=== PATIENT | female | born 1990 | race Caucasian/White ===

== ENCOUNTER 2017-07-02 13:57 | Emergency (ER) | payer OTHER ==
[~2017-07-02] VITALS: Ht 157.4 cm; Wt 57.2 kg
[~2017-07-02 13:57] MED LIST: AMOXICILLIN500 MG PO; COLACE100 MG PO; ERYTHROCIN STE500 M1 PO; MACROBID100 M1 PO; NKHM; ZITHROMAX Z PA250 MG PO; ZYRTEC10 MG PO
[2017-07-02 14:19] VITALS: BP 138/90
[2017-07-02] MEDS ORDERED: NAPROSYN500 MG PO (16:40)
== END 2017-07-02 16:44 | disposition home or self-care (01) ==
LOC: ED 13:57
DX: M54.2 Cervicalgia (principal); R51 Headache; F17.200 Nicotine dependence, unspecified, uncomplicated; Z90.49 Acquired absence of other specified parts of digestive tract; V86.59XA Driver of other special all-terrain or other off-road motor vehicle injured in nontraffic accident, initial encounter; Y93.55 Activity, bike riding; Y92.89 Other specified places as the place of occurrence of the external cause; Y99.9 Unspecified external cause status

== ENCOUNTER → 2017-08-13 | Outpatient (CLI) | payer OTHER ==
[~2017-08-13] MED LIST changes: +NAPROSYN500 MG PO
[2017-08-13 11:27] LABS: HEMATOCRIT 40.9 % (37.0-47.0); HEMOGLOBIN 13.9 g/dl (12.0-16.0); MEAN PLATELET VOLUME 8.8 fl (9.6-12.3); RED BLOOD COUNT 4.35 10*6/uL (4.10-5.10); RED CELL DISTRI WIDTH 11.6 % (0-14.5); WHITE BLOOD COUNT 8.6 10*3/uL (4.8-10.8)
[2017-08-13 11:56] LABS: ALBUMIN 3.8 gm/dl (3.1-4.5); ALKALINE PHOSPHATASE 90 U/L (45-117); BUN 16 mg/dl (7-24); CHLORIDE 105 mmol/L (98-107); CREATININE 0.68 mg/dL (0.55-1.02); POTASSIUM 3.7 mmol/L (3.5-5.1); SGOT/AST 9 IU/L (3-35); SGPT/ALT 16 U/L (12-78); SODIUM 139 mmol/L (136-145); TOTAL PROTEIN 7.4 gm/dL (6.4-8.2)
[2017-08-14 06:11] LABS: HEPATITIS B SURFACE AG Negative (Negative); HEPATITIS C VIRUS ANTIBODY <0.1 s/co (0.0-0.9); HIV 1+2 AB + HIV1 P24 AG Non Reactive (Non Reactive)
== END | disposition home or self-care (01) ==
LOC: LAB 11:10
PROVIDERS: Family Medicine
DX: Z77.21 Contact with and (suspected) exposure to potentially hazardous body fluids (principal)

== ENCOUNTER 2018-01-08 15:21 | Emergency (ER) | payer SELFPAY ==
[~2018-01-08] VITALS: Ht 157.4 cm; Wt 59.0 kg
[2018-01-08 15:28] VITALS: BP 109/52
[2018-01-08] MEDS ORDERED: ROBITUSSIN DM 105 ML PO (16:20)
[2018-01-08] MEDS ORDERED: CLARITIN10 MG PO (16:20)
[2018-01-08] MEDS ORDERED: PREDNISONE10 MG PO (16:20)
[2018-01-08] MEDS ORDERED: FLONASE ALLERG9.9 ML NAS (16:20)
== END 2018-01-08 16:54 | disposition home or self-care (01) ==
LOC: ED 15:21
DX: B34.9 Viral infection, unspecified (principal); Z90.49 Acquired absence of other specified parts of digestive tract; Z88.8 Allergy status to other drugs, medicaments and biological substances

== ENCOUNTER → 2018-09-07 | Outpatient (CLI) | payer OTHER ==
[~2018-09-07] MED LIST changes: +BROMFED DM COU118 M2 PO; +CLARITIN10 MG PO; +FLONASE ALLERG9.9 ML NAS; +OMNICEF300 MG PO; +PREDNISONE10 MG PO; +ROBITUSSIN DM 105 ML PO
== END | disposition home or self-care (01) ==
LOC: US 15:00
DX: Z33.1 Pregnant state, incidental (principal); Z3A.01 Less than 8 weeks gestation of pregnancy

== ENCOUNTER 2018-09-27 11:20 | Emergency (ER) | payer OTHER ==
[~2018-09-27] VITALS: Ht 160 cm; Wt 58.1 kg
[2018-09-27 11:21] VITALS: BP 101/47
[2018-09-27 11:53] LABS: BILIRUBIN NEGATIVE (NEGATIVE); BLOOD NEGATIVE (NEGATIVE); CLARITY SL CLOUDY (CLEAR); COLOR YELLOW (YELLOW); GLUCOSE NEGATIVE (NEGATIVE); KETONE NEGATIVE (NEGATIVE); LEUKO ESTERASE NEGATIVE (NEGATIVE); NITRITE NEGATIVE (NEGATIVE); UROBILINOGEN 0.2 E.U./dl (0.2-1.0)
[2018-09-27 12:38] LABS: BACTERIA 2+
== END 2018-09-27 14:00 | disposition left against medical advice (07) ==
LOC: ED 11:20
PROVIDERS: Emergency Medicine
DX: O26.851 Spotting complicating pregnancy, first trimester (principal); O26.891 Other specified pregnancy related conditions, first trimester; R30.0 Dysuria; Z53.21 Procedure and treatment not carried out due to patient leaving prior to being seen by health care provider; Z90.49 Acquired absence of other specified parts of digestive tract; Z3A.09 9 weeks gestation of pregnancy

== ENCOUNTER 2018-11-18 11:30 | Emergency (ER) | payer OTHER ==
[~2018-11-18] VITALS: Ht 157.4 cm; Wt 57.6 kg
--- NOTE | ~2018-11-18 | EKG ---
[place], [place] ELECTROCARDIOGRAM REPORT NAME: TORRES REID UNIT #: [id number] ROOM: DOCTOR: EPIPHANY DRAFT REPORT BIRTHDATE: [birth year] [facility] Test Date: 2018-11-18 Test Time: 12:01:11 Pat Name: TORRES REID Department: Room: Gender: F [employer]: : 1990 Requested By: MOON CERON Order Number: [id number] Reading MD: Measurements Intervals [place] Rate: 64 P: 95 WI: 156 QRS: 86 QRSD: 76 T: 67 QT: 382 QTc: 394 Interpretive Statements Sinus rhythm No previous ECG available for comparison CM:EKGRPT:ELECTROCARDIOGRAM REPORT [id number] MOON MCKINLEY DRAFT REPORT MOON CERON
[~2018-11-18 11:30] MED LIST changes: +CLASSIC PRENAT1 EACH PO
[2018-11-18 11:32] VITALS: BP 98/35
[2018-11-18 11:43] LABS: BILIRUBIN NEGATIVE (NEGATIVE); BLOOD NEGATIVE (NEGATIVE); CLARITY CLOUDY (CLEAR); COLOR YELLOW (YELLOW); GLUCOSE NEGATIVE (NEGATIVE); KETONE NEGATIVE (NEGATIVE); LEUKO ESTERASE TRACE (NEGATIVE); NITRITE NEGATIVE (NEGATIVE); PH 7.5 (5.0-9.0); UROBILINOGEN 0.2 E.U./dl (0.2-1.0)
[2018-11-18 11:57] LABS: BACTERIA 3+
[2018-11-18 12:10] LABS: BASO # 0.1 10*3/uL (0.0-0.1); BASO % 0.6 % (0.0-1.0); EOS # 0.4 10*3/uL (0.0-0.4); EOS % 2.8 % (1.0-4.0); HEMATOCRIT 35.8 % (37.0-47.0); HEMOGLOBIN 12.3 g/dl (12.0-16.0); MEAN CELL VOLUME 91.6 fl (81.0-99.0); MEAN CORPUSCULAR HGB 31.5 pg (27.0-31.0); MEAN CORPUSCULAR HGB CONC 34.4 g/dl (33.0-37.0); MEAN PLATELET VOLUME 9.1 fl (9.6-12.3); MONO # 0.8 10*3/uL (0.1-1.0); MONO % 5.7 % (3.0-9.0); NEUT # 10.1 10*3/uL (2.3-7.9); NEUT % 75.4 % (47.0-73.0); PLATELET COUNT AUTOMATED 342 10*3/uL (130-400); RED BLOOD COUNT 3.91 10*6/uL (4.10-5.10); WHITE BLOOD COUNT 13.3 10*3/uL (4.8-10.8)
[2018-11-18 12:25] LABS: ALKALINE PHOSPHATASE 61 U/L (45-117); BUN 10 mg/dl (7-24); CHLORIDE 105 mmol/L (98-107); CREATININE 0.54 mg/dL (0.55-1.02); LIPASE 115 U/L (73-393); POTASSIUM 3.7 mmol/L (3.5-5.1); SGOT/AST 9 IU/L (3-35); SGPT/ALT 12 U/L (12-78); SODIUM 137 mmol/L (136-145); TOTAL PROTEIN 6.9 gm/dL (6.4-8.2)
== END 2018-11-18 14:49 | disposition home or self-care (01) ==
LOC: ED 11:30
PROVIDERS: Internal Medicine; Nurse Practitioner Family
DX: O26.892 Other specified pregnancy related conditions, second trimester (principal); R55 Syncope and collapse; O26.52 Maternal hypotension syndrome, second trimester; Z79.899 Other long term (current) drug therapy; Z3A.18 18 weeks gestation of pregnancy; Z90.49 Acquired absence of other specified parts of digestive tract

== ENCOUNTER → 2018-12-07 | Outpatient (CLI) | payer OTHER | END | disposition home or self-care (01) | LOC: US 17:00 | DX: Z34.92 Encounter for supervision of normal pregnancy, unspecified, second trimester (principal); Z3A.20 20 weeks gestation of pregnancy ==

== ENCOUNTER → 2019-01-17 | Outpatient (CLI) | payer OTHER | END | disposition home or self-care (01) | LOC: US 12:24 | DX: Z34.92 Encounter for supervision of normal pregnancy, unspecified, second trimester (principal); Z3A.26 26 weeks gestation of pregnancy ==

== ENCOUNTER → 2019-02-16 | Outpatient (CLI) | payer OTHER | END | disposition home or self-care (01) | LOC: US 02-02 13:00 | DX: Z34.93 Encounter for supervision of normal pregnancy, unspecified, third trimester (principal); P05.10 Newborn small for gestational age, unspecified weight; Z3A.29 29 weeks gestation of pregnancy ==

== ENCOUNTER → 2019-03-03 | Outpatient (CLI) | payer OTHER | END | disposition home or self-care (01) | LOC: US 13:22 | DX: Z34.83 Encounter for supervision of other normal pregnancy, third trimester (principal); Z3A.31 31 weeks gestation of pregnancy ==

== ENCOUNTER 2019-08-16 13:29 | Emergency (ER) | payer OTHER ==
[~2019-08-16] VITALS: Ht 160 cm; Wt 59.0 kg
[2019-08-16 13:30] VITALS: BP 114/66
[2019-08-16] MEDS ORDERED: ZITHROMAX250 MG PO (15:05)
[2019-08-16] MEDS ORDERED: PREDNISONE50 MG PO (15:05)
[2019-08-16] MEDS ORDERED: PROAIR HFA8.5 GM INH (15:05)
== END 2019-08-16 15:10 | disposition home or self-care (01) ==
LOC: ED 13:29
DX: J20.9 Acute bronchitis, unspecified (principal); Z90.49 Acquired absence of other specified parts of digestive tract

== ENCOUNTER 2019-10-09 06:26 | Emergency (ER) | payer OTHER ==
[~2019-10-09] VITALS: Ht 157.4 cm; Wt 64.9 kg
[~2019-10-09 06:26] MED LIST changes: +PREDNISONE50 MG PO; +PROAIR HFA8.5 GM INH; +ZITHROMAX250 MG PO
[2019-10-09 06:27] VITALS: BP 116/48
[2019-10-09] MEDS ORDERED: TYLENOL325 M1 PO (08:24)
[2019-10-09] MEDS ORDERED: NAPROSYN500 MG PO (08:24)
[2019-10-09] MEDS ORDERED: CYCLOBENZAPRINE10 MG PO (08:24)
== END 2019-10-09 08:27 | disposition home or self-care (01) ==
LOC: ED 06:26
DX: S16.1XXA Strain of muscle, fascia and tendon at neck level, initial encounter (principal); S13.4XXA Sprain of ligaments of cervical spine, initial encounter; F17.200 Nicotine dependence, unspecified, uncomplicated; Z88.0 Allergy status to penicillin; Z79.899 Other long term (current) drug therapy; V43.52XA Car driver injured in collision with other type car in traffic accident, initial encounter; Y93.89 Activity, other specified; Y92.481 Parking lot as the place of occurrence of the external cause; Y99.8 Other external cause status

== ENCOUNTER 2019-11-16 02:15 | Emergency (ER) | payer OTHER ==
[~2019-11-16] VITALS: Ht 157.4 cm; Wt 63.5 kg
[~2019-11-16 02:15] MED LIST changes: +CYCLOBENZAPRINE10 MG PO; +TYLENOL325 M1 PO
[2019-11-16 02:17] VITALS: BP 109/55
[2019-11-16 02:47] LABS: BASO # 0.1 10*3/uL (0.0-0.1); EOS # 0.2 10*3/uL (0.0-0.4); EOS % 2.7 % (1.0-4.0); HEMATOCRIT 38.4 % (37.0-47.0); HEMOGLOBIN 12.5 g/dl (12.0-16.0); LYMPH # 2.1 10*3/uL (1.3-4.4); LYMPH % 29.2 % (27.0-41.0); MEAN CELL VOLUME 91.6 fl (81.0-99.0); MEAN CORPUSCULAR HGB 29.8 pg (27.0-31.0); MEAN CORPUSCULAR HGB CONC 32.6 g/dl (33.0-37.0); MEAN PLATELET VOLUME 9.4 fl (9.6-12.3); MONO # 1.3 10*3/uL (0.1-1.0); MONO % 17.4 % (3.0-9.0); NEUT # 3.6 10*3/uL (2.3-7.9); NEUT % 49.6 % (47.0-73.0); PLATELET COUNT AUTOMATED 290 10*3/uL (130-400); RED BLOOD COUNT 4.19 10*6/uL (4.10-5.10); RED CELL DISTRI WIDTH 12.1 % (0-14.5); WHITE BLOOD COUNT 7.3 10*3/uL (4.8-10.8)
[2019-11-16] MEDS ORDERED: PREMARIN1.25 MG PO (03:46)
== END 2019-11-16 04:00 | disposition home or self-care (01) ==
LOC: ED 02:15
PROVIDERS: Emergency Medicine
DX: N93.8 Other specified abnormal uterine and vaginal bleeding (principal); Z88.0 Allergy status to penicillin; Z79.899 Other long term (current) drug therapy; Z90.49 Acquired absence of other specified parts of digestive tract

== ENCOUNTER 2021-05-17 07:27 | Emergency (ER) | payer OTHER ==
[~2021-05-17] VITALS: Ht 157.4 cm; Wt 54.9 kg
[~2021-05-17 07:27] MED LIST changes: +PREMARIN1.25 MG PO
[2021-05-17 07:29] VITALS: BP 102/45
[2021-05-17] MEDS ORDERED: VENLAFAXINE HYD25 MG PO (07:33)
[2021-05-17] MEDS ORDERED: BUSPAR5 MG PO (07:34)
[2021-05-17] MEDS ORDERED: PREDNISONE20 M1 PO (08:48)
[2021-05-17] MEDS ORDERED: PROVENTIL HFA6.7 GM INH (08:48)
[2021-05-17] MEDS ORDERED: FLOVENT HFA10.6 GM INH (08:48)
== END 2021-05-17 08:55 | disposition home or self-care (01) ==
LOC: ED 07:27
DX: J45.901 Unspecified asthma with (acute) exacerbation (principal); F31.9 Bipolar disorder, unspecified; Z88.0 Allergy status to penicillin; Z79.899 Other long term (current) drug therapy; Z90.49 Acquired absence of other specified parts of digestive tract

== ENCOUNTER 2022-09-11 13:37 | Emergency (ER) | payer OTHER ==
[~2022-09-11] VITALS: Ht 157.4 cm; Wt 63.5 kg
[~2022-09-11 13:37] MED LIST changes: +BUSPAR5 MG PO; +FLOVENT HFA10.6 GM INH; +PREDNISONE20 M1 PO; +PROVENTIL HFA6.7 GM INH; +VENLAFAXINE HYD25 MG PO
[2022-09-11 13:47] VITALS: BP 102/62
[2022-09-11] MEDS ORDERED: LAMOTRIGINE25 M1 PO (14:00)
== END 2022-09-11 14:32 | disposition home or self-care (01) ==
LOC: ED 13:37
DX: S70.11XA Contusion of right thigh, initial encounter (principal); Z88.0 Allergy status to penicillin; Z79.899 Other long term (current) drug therapy; Z90.49 Acquired absence of other specified parts of digestive tract; X58.XXXA Exposure to other specified factors, initial encounter; Y93.89 Activity, other specified; Y92.89 Other specified places as the place of occurrence of the external cause; Y99.8 Other external cause status

== ENCOUNTER → 2024-01-24 | Outpatient (CLI) | payer BC ==
[~2024-01-24] MED LIST changes: +LAMOTRIGINE25 M1 PO
[2024-01-24 09:27] LABS: BASO # 0.1 10*3/uL (0.0-0.1); BASO % 1.2 % (0.0-1.0); EOS # 0.4 10*3/uL (0.0-0.4); EOS % 6.1 % (1.0-4.0); HEMATOCRIT 43.1 % (37.0-47.0); LYMPH # 2.2 10*3/uL (1.3-4.4); LYMPH % 31.1 % (27.0-41.0); MEAN CELL VOLUME 92.3 fl (81.0-99.0); MEAN CORPUSCULAR HGB 30.4 pg (27.0-31.0); MEAN CORPUSCULAR HGB CONC 32.9 g/dl (33.0-37.0); MEAN PLATELET VOLUME 9.2 fl (9.6-12.3); MONO # 0.6 10*3/uL (0.1-1.0); MONO % 8.2 % (3.0-9.0); NEUT # 3.7 10*3/uL (2.3-7.9); NEUT % 53.3 % (47.0-73.0); PLATELET COUNT AUTOMATED 324 10*3/uL (130-400); RED BLOOD COUNT 4.67 10*6/uL (4.10-5.10); RED CELL DISTRI WIDTH 11.8 % (0-14.5); WHITE BLOOD COUNT 6.9 10*3/uL (4.8-10.8)
[2024-01-24 10:08] LABS: ALKALINE PHOSPHATASE 76 U/L (46-116); BUN 17 mg/dl (9-23); CHLORIDE 106 mmol/L (98-107); CHOLESTEROL 151 mg/dL (<200); FREE T4 1.15 ng/dl (0.89-1.76); LDL CHOLESTEROL 83 mg/dL (9-159); POTASSIUM 3.8 mmol/L (3.4-5.1); SGPT/ALT 7 U/L (5-49); TOTAL PROTEIN 7.5 gm/dL (6.0-8.0); TRIGLYCERIDES 61 mg/dl (<150)
== END | disposition home or self-care (01) ==
LOC: LAB 08:58
PROVIDERS: ATTEND Nurse Practitioner Family
DX: Z13.0 Encounter for screening for diseases of the blood and blood-forming organs and certain disorders involving the immune mechanism (principal); Z13.29 Encounter for screening for other suspected endocrine disorder; Z13.228 Encounter for screening for other metabolic disorders; Z13.220 Encounter for screening for lipoid disorders

== ENCOUNTER → 2024-07-28 | Outpatient (CLI) | payer BC ==
[2024-07-28 13:52] LABS: BASO # 0.1 10*3/uL (0.0-0.1); BASO % 1.2 % (0.0-1.0); EOS # 0.5 10*3/uL (0.0-0.4); EOS % 5.2 % (1.0-4.0); HEMATOCRIT 39.2 % (37.0-47.0); LYMPH # 2.8 10*3/uL (1.3-4.4); LYMPH % 28.9 % (27.0-41.0); MEAN CELL VOLUME 93.6 fl (81.0-99.0); MEAN CORPUSCULAR HGB 30.8 pg (27.0-31.0); MEAN CORPUSCULAR HGB CONC 32.9 g/dl (33.0-37.0); MEAN PLATELET VOLUME 9.2 fl (9.6-12.3); MONO # 0.8 10*3/uL (0.1-1.0); MONO % 7.9 % (3.0-9.0); NEUT # 5.4 10*3/uL (2.3-7.9); NEUT % 56.5 % (47.0-73.0); PLATELET COUNT AUTOMATED 296 10*3/uL (130-400); RED BLOOD COUNT 4.19 10*6/uL (4.10-5.10); RED CELL DISTRI WIDTH 11.8 % (0-14.5); WHITE BLOOD COUNT 9.5 10*3/uL (4.8-10.8)
[2024-07-28 14:16] LABS: ALKALINE PHOSPHATASE 64 U/L (46-116); BUN 14 mg/dl (9-23); CHLORIDE 105 mmol/L (98-107); POTASSIUM 3.7 mmol/L (3.4-5.1); SGPT/ALT 12 U/L (5-49); TOTAL PROTEIN 6.8 gm/dL (6.0-8.0)
== END | disposition home or self-care (01) ==
LOC: LAB 13:27
PROVIDERS: ATTEND Nurse Practitioner Family
DX: R79.89 Other specified abnormal findings of blood chemistry (principal); R63.4 Abnormal weight loss

== ENCOUNTER 2024-10-23 18:03 | Emergency (ER) | payer BC ==
[~2024-10-23] VITALS: Ht 157.4 cm; Wt 54.4 kg
[2024-10-23 18:15] VITALS: BP 96/49
[2024-10-23] MEDS ORDERED: NAPROSYN500 MG PO (19:02)
== END 2024-10-23 19:12 | disposition home or self-care (01) ==
LOC: ED 18:03
DX: S93.401A Sprain of unspecified ligament of right ankle, initial encounter (principal); J45.909 Unspecified asthma, uncomplicated; Z88.0 Allergy status to penicillin; Z90.49 Acquired absence of other specified parts of digestive tract; X50.1XXA Overexertion from prolonged static or awkward postures, initial encounter; Y93.01 Activity, walking, marching and hiking; Y92.89 Other specified places as the place of occurrence of the external cause; Y99.8 Other external cause status